=== PATIENT | male | born 1965 | race Caucasian/White ===

== ENCOUNTER → 2016-05-12 | Outpatient (CLI) | payer BC ==
[2016-05-12 16:42] LABS: HEMATOCRIT 47.8 % (42.0-52.0); HEMOGLOBIN 16.3 g/dL (14.0-18.0); MEAN CORPUSCULAR HEMOGLOBIN 29.6 PG (27-31); MEAN CORPUSCULAR HGB CONC 34.1 g/dL (33-37); MEAN PLATELET VOLUME 9.9 FL (7.4-12.2); RDW COEFFICIENT OF VARIATION 12.8 % (11.5-14.5); RED BLOOD COUNT 5.51 10^6/uL (4.70-6.10); WHITE BLOOD COUNT 7.33 10^3/uL (4.8-10.8)
[2016-05-12 17:19] LABS: POTASSIUM 4.5 meq/L (3.8-5.2); SODIUM 136 meq/L (135-145)
[2016-05-12 17:20] LABS: ASPARTATE AMINO TRANSFERASE 76 IU/L (21-57); BLOOD UREA NITROGEN 11 mg/dL (7-22); BUN/CREATININE RATIO 13.75 (6-20); CALCIUM 9.7 mg/dL (8.7-10.7); CHLORIDE 98 meq/L (98-112); CREATININE 0.8 mg/dL (0.70-1.50); EST GLOMERULAR FILTRATION > 60 (>60 ml/min/1.73m(2)); GLUCOSE 80 mg/dL (78-110)
[2016-05-12 17:23] LABS: TOTAL PROTEIN 7.6 g/dL (6.1-8.0)
== END ==
LOC: MOB LAB 15:25
PROVIDERS: ATTEND Family Medicine
DX: I10 Essential (primary) hypertension (principal); E78.5 Hyperlipidemia, unspecified
CPT/HCPCS: 36415; 80053; 84443; 85027

== ENCOUNTER → 2016-06-28 | Outpatient (CLI) | payer BC ==
--- NOTE | 2016-06-28 14:38 | DI ---
GALLBLADDER AND LIVER ULTRASOUND, 06/28/2016 10:16 AM: Clinical History: Elevated liver enzymes. Previous Exam: None at this facility. Technique: Scans are performed through the right upper quadrant in multiple projections. The patient was rolled from side to side and the gallbladder was balloted with the probe to facilitate visualizat ion of small gallstones. The gallbladder is well distended and has a normal wall thickness. There are no gallstones. The commo n bile duct measures 7 mm and this is dilated but there is no intrahepatic biliary dilatation. The pa ncreas is poorly visualized probably secondary to surrounding adipose tissue. The liver shows diffuse increased echogenicity with decreased through transmission indicating fatty infiltration. The liver length is 15.3 cm. The right kidney, aorta, and IVC are normal. Readin. The gallbladder is normal but the common bile duct is dilated and measures 7 mm. The pancreas is not visualized. There is no intrahepatic biliary dilatation but there is evidence of diffuse fatty in filtration of the liver without hepatomegaly. 2. The right kidney, aorta, and IVC are normal.
== END ==
LOC: US 10:12
PROVIDERS: ATTEND Family Medicine
DX: R74.8 Abnormal levels of other serum enzymes (principal); K76.0 Fatty (change of) liver, not elsewhere classified
CPT/HCPCS: 76705

== ENCOUNTER → 2016-06-30 | Outpatient (CLI) | payer BC ==
[2016-06-30 10:55] LABS: HEMOGLOBIN A1C 5.83 % (4.2-6.0); MEAN BLOOD GLUCOSE (CALC) 108.139 mg/dL
[2016-06-30 11:14] LABS: ASPARTATE AMINO TRANSFERASE 59 IU/L (21-57); BILIRUBIN,TOTAL 0.7 mg/dL (0.3-1.2); BLOOD UREA NITROGEN 13 mg/dL (7-22); BUN/CREATININE RATIO 14.44 (6-20); CALCIUM 9.5 mg/dL (8.7-10.7); CHLORIDE 101 meq/L (98-112); CREATININE 0.9 mg/dL (0.70-1.50); EST GLOMERULAR FILTRATION > 60 (>60 ml/min/1.73m(2)); GLUCOSE 98 mg/dL (78-110); HDL CHOLESTEROL 38 mg/dL (40-150); POTASSIUM 4.2 meq/L (3.8-5.2); SODIUM 140 meq/L (135-145); TOTAL PROTEIN 7.4 g/dL (6.1-8.0); TRIGLYCERIDES 120 mg/dL (44-200)
== END ==
LOC: LAB 10:32
PROVIDERS: ATTEND Family Medicine
DX: R73.03 Prediabetes (principal); E78.5 Hyperlipidemia, unspecified; I10 Essential (primary) hypertension
CPT/HCPCS: 36415; 80053; 80061; 83036